=== PATIENT | male | born 1965 | race African-American/Black ===

== ENCOUNTER 2018-09-06 18:48 | Emergency (ER) | payer MEDICAID ==
[2018-09-06] MEDS ORDERED: NS 1,000 ML IV ONE (18:53)
--- NOTE | 2018-09-06 18:59 | EDPHY ---
H & P Stated Complaint: altered mental status Source: Patient Exam Limitations: No limitations - Personal History Current Tetanus/Diphtheria Vaccine: Unsure - Medical/Surgical History Hx Diabetes: Yes Other PMH: diabetic- unable to get complete history due to confusion Time Seen by Provider: 09/06/18 18:58 HPI/ROS: CHIEF COMPLAINT: Altered mental status HISTORY OF PRESENT ILLNESS: The patient is brought to the emergency department with altered mental status. The patient reportedly is homeless and lives out of his car. He has been staying in [place]. The patient was brought to the ED is he is confused per pre-hospital services. Patient does have a history of diabetes. His field stick blood sugar was 286. The patient is uncertain if he has been compliant with his diabetic medications. He denies any history of fall or trauma. He denies any complaints of acute pain. He denies fever. The patient is quite disoriented and thinks it is 1965. REVIEW OF SYSTEMS: A comprehensive 10 point review of systems is otherwise negative aside from elements mentioned in the history of present illness. (Nikolai Pandey) - Physical Exam Exam: General Appearance: Alert, no distress Eyes: Pupils equal and round no pallor or injection ENT, Mouth: Mucous membranes moist Respiratory: There are no retractions, lungs are clear to auscultation Cardiovascular: Regular rate and rhythm Gastrointestinal: Abdomen is soft and nontender, no masses, bowel sounds normal Neurological: A&O, normal motor function, normal sensory exam, normal cranial nerves Skin: Warm and dry, no rashes Musculoskeletal: Neck is supple nontender Extremities: symmetrical, full range of motion (Nikolai Pandey) Constitutional: Initial Vital Signs Temperature (C) 36.9 C 09/06/18 18:52 Heart Rate 95 09/06/18 18:52 Respiratory Rate 16 09/06/18 18:52 Blood Pressure 103/82 H 09/06/18 18:52 O2 Sat (%) 97 09/06/18 18:52 O2 Delivery Mode Room Air Allergies/Adverse Reactions: No Known Allergies Allergy (Unverified 09/06/18 18:57) Home Medications: Medication Instructions Recorded Insulin 70/30 Human 09/06/18 Medical Decision Making - Diagnostics Imaging Results: Imaging Impressions Head CT 09/06/18 19:33 Impression: Negative noncontrast CT of the brain. Results called to Dr. Michele Solares at 8:30 PM at the time of the interpretation. ED Course/Re-evaluation: Patient presents to the ED with limited history with confusion. The patient has no evidence of trauma. He is neurologically intact aside from being slightly disoriented. The patient's vital signs are stable. Patient had a CT scan of the head which demonstrates no evidence of an acute injury or mass. Patient is noted to have mild hyperglycemia without evidence of diabetic ketoacidosis. Re-evaluated the patient at 9:00 p.m.. His mentation is improving. He continues to deny using drugs. Patient reports that he has been living in [place] for the past 3 weeks. He most recently was in [place]. Still waiting blood alcohol level in urine toxicology. At this point time his improving mentation is reassuring. I do believe he likely is presenting with altered mental status secondary to intoxication. Patient will be turned over to Dr. Hogan at shift change pending additional urine test. Plan will be for observation in the ED. (Nikolai Pandey) 2100: I assumed care of this patient from Dr. Pandey at shift change. 2227: Patient is continuing to sober up and is safe to be [facility]. Return precautions provided; patient is comfortable with this plan. (New Hogan) Differential Diagnosis: Differential diagnosis considered includes alcohol intoxication, substance abuse , metabolic derangement, intracranial hemorrhage (Nikolai Pandey) - Data Points Laboratory Results: Laboratory Results 09/06/18 18:58 09/06/18 19:37 09/06/18 09/06/18 09/06/18 21:40 20:30 19:37 WBC RBC Hgb Hct MCV MCH MCHC RDW Plt Count MPV Neut % (Auto) Lymph % (Auto) [place] % (Auto) Eos % (Auto) Baso % (Auto) Nucleat RBC Rel Count Absolute Neuts (auto) Absolute Lymphs (auto) Absolute Monos (auto) Absolute Eos (auto) Absolute Basos (auto) Absolute Nucleated RBC Immature Gran % Immature Gran # Sodium 135 mEq/L mEq/L (135-145) Potassium 3.8 mEq/L mEq/L (3.5-5.2) Chloride 107 mEq/L mEq/L (97-110) Carbon Dioxide 22 mEq/l mEq/l (22-31) Anion Gap 6 mEq/L mEq/L (6-14) BUN 15 mg/dL mg/dL (7-23) Creatinine 0.6 mg/dL L mg/dL (0.7-1.3) Estimated GFR > 60 Glucose 298 mg/dL H mg/dL (70-100) Calcium 8.2 mg/dL L mg/dL (8.5-10.4) Urine Color YELLOW Urine Appearance CLEAR Urine pH 6.0 (5.0-7.5) Ur Specific [place] > 1.035 H (1.002-1.030) Urine Protein NEGATIVE (NEGATIVE) Urine Ketones TRACE H (NEGATIVE) Urine Blood NEGATIVE (NEGATIVE) Urine Nitrate NEGATIVE (NEGATIVE) Urine Bilirubin NEGATIVE (NEGATIVE) Urine Urobilinogen 4.0 EU H EU (0.2-1.0) Ur Leukocyte Esterase NEGATIVE (NEGATIVE) Urine RBC 1-3 /hpf /hpf (0-3) Urine WBC 1-3 /hpf /hpf (0-3) Ur Epithelial Cells NONE SEEN /lpf /lpf (NONE-1+) Urine Glucose 3+ H (NEGATIVE) Urine Opiates Screen NEGATIVE (NEGATIVE) Urine Barbiturates NEGATIVE (NEGATIVE) Ur Phencyclidine Scrn NEGATIVE (NEGATIVE) Ur Amphetamine Screen NEGATIVE (NEGATIVE) U Benzodiazepines Scrn NEGATIVE (NEGATIVE) Urine Cocaine Screen NON-NEGATIVE H (NEGATIVE) U Marijuana (THC) Screen NEGATIVE (NEGATIVE) Ethyl Alcohol < 10 mg/dL mg/dL (0-10) 09/06/18 09/06/18 18:58 18:58 WBC 6.64 10^3/uL 10^3/uL (3.80-9.50) RBC 5.48 10^6/uL 10^6/uL (4.40-6.38) Hgb 16.1 g/dL g/dL (13.7-17.5) Hct 48.3 % % (40.0-51.0) MCV 88.1 fL fL (81.5-99.8) MCH 29.4 pg pg (27.9-34.1) MCHC 33.3 g/dL g/dL (32.4-36.7) RDW 13.8 % % (11.5-15.2) Plt Count 340 10^3/uL 10^3/uL (150-400) MPV 8.9 fL fL (8.7-11.7) Neut % (Auto) 48.7 % % (39.3-74.2) Lymph % (Auto) 33.4 % % (15.0-45.0) [place] % (Auto) 5.6 % % (4.5-13.0) Eos % (Auto) 11.6 % H % (0.6-7.6) Baso % (Auto) 0.5 % % (0.3-1.7) Nucleat RBC Rel Count 0.0 % % (0.0-0.2) Absolute Neuts (auto) 3.24 10^3/uL 10^3/uL (1.70-6.50) Absolute Lymphs (auto) 2.22 10^3/uL 10^3/uL (1.00-3.00) Absolute Monos (auto) 0.37 10^3/uL 10^3/uL (0.30-0.80) Absolute Eos (auto) 0.77 10^3/uL H 10^3/uL (0.03-0.40) Absolute Basos (auto) 0.03 10^3/uL 10^3/uL (0.02-0.10) Absolute Nucleated RBC 0.00 10^3/uL 10^3/uL (0-0.01) Immature Gran % 0.2 % % (0.0-1.1) Immature Gran # 0.01 10^3/uL 10^3/uL (0.00-0.10) Sodium REJ Potassium REJ Chloride REJ Carbon Dioxide REJ Anion Gap REJ BUN REJ Creatinine REJ Estimated GFR REJ Glucose REJ Calcium REJ Urine Color Urine Appearance Urine pH Ur Specific [place] Urine Protein Urine Ketones Urine Blood Urine Nitrate Urine Bilirubin Urine Urobilinogen Ur Leukocyte Esterase Urine RBC Urine WBC Ur Epithelial Cells Urine Glucose Urine Opiates Screen Urine Barbiturates Ur Phencyclidine Scrn Ur Amphetamine Screen U Benzodiazepines Scrn Urine Cocaine Screen U Marijuana (THC) Screen Ethyl Alcohol REJ Medications Given: Discontinued Medications Sodium Chloride (Ns) 1,000 mls @ 0 mls/hr IV EDNOW ONE; Wide Open PRN Reason: Protocol Stop: 09/06/18 18:54 Last Admin: 09/06/18 19:08 Dose: 1,000 mls Departure - Departure Disposition: Home, Routine, Self-Care Clinical Impression: Polysubstance abuse Condition: Good Instructions: Polysubstance Abuse (ED) Additional Instructions: 1. Please refrain from abusing drugs. 2. Return to the emergency department immediately for fever, vomiting, confusion , headache, abdominal pain or other worsening of condition. 3. Followup with your primary care physician within 72 hours for reevaluation. Referrals: [facility],. [Clinic] - As per Instructions
[2018-09-06 19:04] LABS: PLATELET COUNT 340 10^3/uL (150-400)
[2018-09-06 22:52] VITALS: BP 105/80
== END 2018-09-06 22:52 | disposition home or self-care (01) ==
LOC: EDUNIT#
DX: F19.10 Other psychoactive substance abuse, uncomplicated (principal); E86.9 Volume depletion, unspecified; E11.9 Type 2 diabetes mellitus without complications; Z59.0 Homelessness
CPT/HCPCS: 80305; G0480